=== PATIENT | female | born 1940 | race Caucasian/White ===

== ENCOUNTER 2017-05-01 19:41 | Inpatient (IN) | payer MEDICARE ==
[2017-05-01] MEDS ORDERED: Acetaminophen TAB* 325 MG PO ONE (20:38)
[2017-05-01] MEDS ORDERED: Aspirin TAB* 325 MG PO ONE (20:44)
[2017-05-01 20:51] LABS: ABS Basophils 0 10^3/ul (0-0.2); ABS Eosinophils 0 10^3/ul (0-0.6); ABS Lymphocytes 0.9 10^3/ul (1.0-4.8); ABS Monocytes 0.9 10^3/ul (0-0.8); ABS Neutrophils 11.1 10^3/ul (1.5-7.7); ABS Nucleated RBC 0 10^3/ul; Eosinophil % 0.1 % (0-6); Hematocrit 45 % (35-47); Hemoglobin 15.7 g/dl (12.0-16.0); Lymphocyte % 6.8 % (25-47); Mean Corpuscular HGB Conc 35 g/dl (31-36); Mean Corpuscular Hemoglobin 33 pg (27-31); Mean Corpuscular Volume 95 fL (80-97); Mean Platelet Volume 7 um3 (7.4-10.4); Nucleated Red Blood Cells % 0; Platelet Count 269 10^3/ul (150-450); Red Blood Count 4.73 10^6/ul (4.0-5.4); Red Cell Distribution Width 14 % (10.5-15); White Blood Count 12.9 10^3/ul (3.5-10.8)
--- NOTE | 2017-05-01 21:04 | RAD ---
INDICATION: Chest pain COMPARISON: None TECHNIQUE: An AP portable view obtained at 2047 hours is submitted. FINDINGS: Bones/Soft Tissues: There are no acute bony findings. Cardiomediastinal: The cardiomediastinal silhouette is normal. Lungs: There is a small left basilar infiltrate or atelectasis.. Pleura: Probable small left-sided effusion. Other: None IMPRESSION: SMALL LEFT BASILAR INFILTRATE OR ATELECTASIS WITH SUSPECTED LEFT-SIDED PLEURAL EFFUSION .
[2017-05-01 21:06] LABS: EGFR Non-African American 51.7 (>60); INR 0.92 (0.77-1.02)
[2017-05-01] MEDS ORDERED: Levofloxacin 500 MG IVPREMIX(* 500 MG/100 ML BAG IVPB ONE (21:17)
[2017-05-01] MEDS ORDERED: Potassium Chlor TAB* 20 MEQ TAB.ER PO ONE (21:18)
[2017-05-01] MEDS ORDERED: Albuterol 2.5 MG/3 ML NEB.SOL* (0.083%) INH PRN (22:27)
[2017-05-01] MEDS ORDERED: Ondansetron INJ* 2 MG/ML VIAL IV PRN (22:27)
[2017-05-01] MEDS ORDERED: NS 0.9% 1000 ML* 1,000 ML IV ONE (22:27)
[2017-05-01] MEDS ORDERED: NS 0.9% 1000 ML* 1,000 ML IV SCH (22:30)
--- NOTE | 2017-05-01 22:41 | ED ---
Zheng Carrillo Angela, scribed for Wil Lorenzana on 05/01/17 at 2035 . HPI Chest Pain - HPI Summary HPI Summary: This pt is a 77 y/o female presenting to [facility] c/o mid sternal chest pain since 14:00 today. Pt reports her chest pain began while she was at rest. Pt notes she was sitting down on a chair and then she laid down on a sofa. She states her chest pain has been constant. Pt reports mild SOB and pleuritic chest pain. She additionally notes fatigue and chills today. She denies nausea, vomiting, dizziness, fever, cough. Pt states she had a stress test 15 years ago but was unable to complete it, pt never followed up afterwards. She has also had an echocardiogram done, which resulted normal. Denies FHx of cardiac disease. - History of Current Complaint Chief Complaint: EDChestPainROMI Time Seen by Provider: 05/01/17 20:22 Hx Obtained From: Patient Onset/Duration: Started Hours Ago, Still Present Timing: Lasting Hours Current Severity: Mild Pain Intensity: 1 Pain Scale Used: 0-10 Numeric Chest Pain Location: Mid Sternal Chest Pain Radiates: No Aggravating Factor(s): Deep Breaths Alleviating Factor(s): Nothing Associated Signs and Symptoms: Positive: Chest Pain, Shortness of Breath, Chills , Other: - fatigue. Negative: Dizziness, Fever, Nausea, Cough, Vomiting - Allergy/Home Medications Allergies/Adverse Reactions: Allergies Allergy/AdvReac Type Severity Reaction Status Date / Time lisinopril Allergy Intermediate Coughing Verified 05/01/17 22:35 Penicillins Allergy Rash Verified 05/01/17 22:35 Sulfa (Sulfonamide Allergy Rash Verified 05/01/17 22:35 Antibiotics) NICKEL METAL Allergy Mild Rash Uncoded 02/07/16 09:14 Home Medications: Home Medications Multivitamins/Minerals TAB* [Theragran/minerals TAB*] 1 tab PO DAILY 05/01/17 [ History Confirmed 05/01/17] PMH/Surg Hx/FS Hx/Imm Hx Cardiovascular History: Reports: Hx Hypertension Musculoskeletal History: Denies: Hx Rheumatoid Arthritis, Hx Osteoporosis Sensory History: Reports: Hx Cataracts - PENDING SURGERY, Hx Contacts or Glasses , Hx Glaucoma - RIGHT EYE Denies: Hx Hearing Aid Opthamlomology History: Reports: Hx Cataracts - PENDING SURGERY, Hx Contacts or Glasses, Hx Glaucoma - RIGHT EYE - Cancer History Hx Chemotherapy: No Hx Radiation Therapy: No - Surgical History Surgery Procedure, Year, and Place: SEVERAL EYE SURGERIES TO LEFT EYE Hx Anesthesia Reactions: No Infectious Disease History: No Infectious Disease History: Denies: Traveled Outside the [place] in Last 30 Days - Family History Known Family History: Negative: Cardiac Disease - Social History Alcohol Use: Daily Alcohol Amount: GLASS OF WINE Substance Use Type: Reports: None Smoking Status (MU): Never Smoked Tobacco Review of Systems Positive: Chills, Fatigue. Negative: Fever Positive: Chest Pain Positive: Shortness Of Breath. Negative: Cough Negative: Vomiting, Nausea Neurological: Other - NEG: dizziness All Other Systems Reviewed And Are Negative: Yes Physical Exam - Summary Physical Exam Summary: Appearance: Well appearing, no pain distress Skin: warm, dry, reflects adequate perfusion Head/face: normal Eyes: EOMI, JOSÉ MIGUEL ENT: normal Neck: supple, nontender Respiratory: CTA, breath sounds present Cardiovascular: Tachycardia, pulses symmetrical Abdomen: nontender, soft Bowel: present Musculoskeletal: normal, strength/ROM intact Neuro: normal, sensory motor intact, A&Ox3 Triage Information Reviewed: Yes Vital Signs On Initial Exam: Initial Vitals Temp Pulse Resp BP Pulse Ox 98.4 F 122 20 132/79 92 05/01/17 19:44 05/01/17 19:44 05/01/17 19:44 05/01/17 19:44 05/01/17 19:44 Vital Signs Reviewed: Yes Diagnostics - Vital Signs Vital Signs Temp Pulse Resp BP Pulse Ox 05/01/17 19:44 98.4 F 122 20 132/79 92 - Laboratory Lab Results: Lab Results 05/01/17 05/01/17 05/01/17 Range/Units 20:24 20:24 20:24 WBC 12.9 H (3.5-10.8) 10^3/ul RBC 4.73 (4.0-5.4) 10^6/ul Hgb 15.7 (12.0-16.0) g/dl Hct 45 (35-47) % MCV 95 (80-97) fL MCH 33 H (27-31) pg MCHC 35 (31-36) g/dl RDW 14 (10.5-15) % Plt Count 269 (150-450) 10^3/ul MPV 7 L (7.4-10.4) um3 Neut % (Auto) 86.1 H (38-83) % Lymph % (Auto) 6.8 L (25-47) % Leon % (Auto) 6.8 (0-7) % Eos % (Auto) 0.1 (0-6) % Baso % (Auto) 0.2 (0-2) % Absolute Neuts (auto) 11.1 H (1.5-7.7) 10^3/ul Absolute Lymphs (auto) 0.9 L (1.0-4.8) 10^3/ul Absolute Monos (auto) 0.9 H (0-0.8) 10^3/ul Absolute Eos (auto) 0 (0-0.6) 10^3/ul Absolute Basos (auto) 0 (0-0.2) 10^3/ul Absolute Nucleated RBC 0 10^3/ul Nucleated RBC % 0 INR (Anticoag Therapy) 0.92 (0.77-1.02) APTT 30.3 (26.0-36.3) seconds Sodium (133-145) mmol/L Potassium (3.5-5.0) mmol/L Chloride (101-111) mmol/L Carbon Dioxide (22-32) mmol/L Anion Gap (2-11) mmol/L BUN (6-24) mg/dL Creatinine (0.51-0.95) mg/dL Est GFR ( Amer) (>60) Est GFR (Non-Af Amer) (>60) BUN/Creatinine Ratio (8-20) Glucose (70-100) mg/dL Lactic Acid (0.5-2.0) mmol/L Calcium (8.6-10.3) mg/dL Total Bilirubin (0.2-1.0) mg/dL AST (13-39) U/L ALT (7-52) U/L Alkaline Phosphatase (34-104) U/L Troponin I (<0.04) ng/mL B-Natriuretic Peptide 46 ( - 100) pg/mL Total Protein (6.4-8.9) g/dL Albumin (3.2-5.2) g/dL Globulin (2-4) g/dL Albumin/Globulin Ratio (1-3) Lipase (11.0-82.0) U/L Influenza A (Rapid) (Negative) Influenza B (Rapid) (Negative) 05/01/17 05/01/17 05/01/17 Range/Units 20:24 20:24 20:46 WBC (3.5-10.8) 10^3/ul RBC (4.0-5.4) 10^6/ul Hgb (12.0-16.0) g/dl Hct (35-47) % MCV (80-97) fL MCH (27-31) pg MCHC (31-36) g/dl RDW (10.5-15) % Plt Count (150-450) 10^3/ul MPV (7.4-10.4) um3 Neut % (Auto) (38-83) % Lymph % (Auto) (25-47) % Leon % (Auto) (0-7) % Eos % (Auto) (0-6) % Baso % (Auto) (0-2) % Absolute Neuts (auto) (1.5-7.7) 10^3/ul Absolute Lymphs (auto) (1.0-4.8) 10^3/ul Absolute Monos (auto) (0-0.8) 10^3/ul Absolute Eos (auto) (0-0.6) 10^3/ul Absolute Basos (auto) (0-0.2) 10^3/ul Absolute Nucleated RBC 10^3/ul Nucleated RBC % INR (Anticoag Therapy) (0.77-1.02) APTT (26.0-36.3) seconds Sodium 131 L (133-145) mmol/L Potassium 2.9 L (3.5-5.0) mmol/L Chloride 96 L (101-111) mmol/L Carbon Dioxide 24 (22-32) mmol/L Anion Gap 11 (2-11) mmol/L BUN 18 (6-24) mg/dL Creatinine 1.04 H (0.51-0.95) mg/dL Est GFR ( Amer) 66.4 (>60) Est GFR (Non-Af Amer) 51.7 (>60) BUN/Creatinine Ratio 17.3 (8-20) Glucose 129 H (70-100) mg/dL Lactic Acid 1.6 (0.5-2.0) mmol/L Calcium 9.3 (8.6-10.3) mg/dL Total Bilirubin 1.00 (0.2-1.0) mg/dL AST 16 (13-39) U/L ALT 16 (7-52) U/L Alkaline Phosphatase 70 (34-104) U/L Troponin I 0.01 (<0.04) ng/mL B-Natriuretic Peptide ( - 100) pg/mL Total Protein 7.4 (6.4-8.9) g/dL Albumin 4.2 (3.2-5.2) g/dL Globulin 3.2 (2-4) g/dL Albumin/Globulin Ratio 1.3 (1-3) Lipase 22 (11.0-82.0) U/L Influenza A (Rapid) Negative (Negative) Influenza B (Rapid) Negative (Negative) Result Diagrams: 05/01/17 20:24 05/01/17 20:24 Lab Statement: Any lab studies that have been ordered have been reviewed, and results considered in the medical decision making process. - Radiology Chest XR Xray Interpretation: Positive (See Comments) - IMPRESSION: Small left basilar infiltrate or atelectasis with suspected left-sided pleural effusion. Dr. Lorenzana has reviewed this radiology report. Radiology Interpretation Completed By: Radiologist - EKG 19:50 Cardiac Rate: Tachycardia EKG Rhythm: Sinus Tachycardia - at [address] Segment: Non-Specific - in inferior leads Re-Evaluation - Re-Evaluation First Eval Re-Evaluation Time: 21:28 Comment: I reviewed the lab and XR results with the pt. Chest Pain Course/Dx - Course Course Of Treatment: Pt is a 77 y/o female who presents with constant mid sternal chest pain since 14:00 today. She reports pleuritic chest pain and mild SOB. Blood work, EKG, and chest XR obtained. Chest XR shows pneumonia. In the ED course, the pt was given aspirin, acetaminophen, and levaquin. I discussed pt care with Dr. Villatoro, hospitalist, who has agreed to admit the pt. - Chest Pain Differential Diagnosis/HQI/PQRI: Acute DC, ACS, CHF, Lower Respiratory Infection - Diagnoses Provider Diagnoses: Pneumonia, Hypokalemia - Provider Notifications Discussed Care Of Patient With: Theo Villatoro Time Discussed With Above Provider: 21:30 Instructed by Provider To: Other - I discussed pt care with Dr. Villatoro, hospitalist, who has agreed to admit the pt. Discharge - Discharge Plan Condition: Stable Disposition: ADMITTED TO [facility] Referrals: Kimberley Clayton MD [Primary Care Provider] - The documentation as recorded by the Zheng felipe Angela accurately reflects the service I personally performed and the decisions made by , Wil Lorenzana.
[2017-05-01] MEDS ORDERED: cefTRIAXone(*) 1 GM ADVAN/BAG ONE (22:51)
[2017-05-01] MEDS: cefTRIAXone(*) 1 GM in NS 0.9% 50 ML* 50 ML IVPB SCH (22:53)
[2017-05-01] MEDS ORDERED: Iodixanol* (CONTRAST) 320 MG/ML 100 ML SDV IV ONE (23:21)
[2017-05-02] MEDS: Azithromycin IV(*) 500 MG in NS 0.9% 250 ML* 250 ML IVPB SCH ×2 (00:09→22:19)
[2017-05-02] MEDS: cefTRIAXone(*) 1 GM in NS 0.9% 50 ML* 50 ML IVPB SCH ×2 (01:20→22:00)
[2017-05-02 02:17] LABS: Urine Appearance Clear; Urine Blood 1+ (Negative); Urine Color Yellow; Urine Ketones Negative (Negative); Urine Protein Negative (Negative); Urine Specific Gravity 1.045 (1.010-1.030); Urine Urobilinogen Negative (Negative)
--- NOTE | 2017-05-02 04:19 | HP ---
CC: Dr. Clayton * HISTORY AND PHYSICAL: DATE OF ADMISSION: 05/01/17 PRIMARY CARE PROVIDER: Dr. Clayton. ATTENDING PHYSICIAN WHILE IN THE HOSPITAL: Dr. Theo Villatoro * (report dictated by Dion Thompson NP) CHIEF COMPLAINT: 1. Weakness. 2. Not feeling well. 3. Chest pain. HISTORY OF PRESENT ILLNESS: Ms. Johns is a 77-year-old female patient. She has a history of hypertension, glaucoma, hyperlipidemia, and arthritis. She comes into the ER today, says that yesterday she was feeling a little bit more tired and weak than her baseline. She said she noticed she was getting fatigued easily or she thought may be she did not sleep well the night before. She went to bed, she woke up this morning feeling rested; however, she noted in the day, she started having chest tightness, particularly in the afternoon after eating. She thought may be it was related to this; however, it remained constant, described as a sharp pain, worse with taking a deep breath. She noted any time that she took a deep breath, she was having pain, made things worse. It was nonexertional she said. She said she Google'd things on the internet to see what this could be and she was reassured that it was not exertional but she was concerned because it just was not going away. She was feeling fatigued and weak. She had chills this afternoon. She denies any recent rhinorrhea, sore throat, congestion, or cough. She was noticing that she was a little bit more winded and a little bit more tired. She was having dyspnea on exertion. There was no swelling or weight gain. No recent trips or travel or surgeries. She was concerned though because of the pain that was in the center of her chest. She wanted to make sure her heart was okay so she decided to come into the ED. She denies any nausea. She had 1 episode of diarrhea today, but no vomiting and no abdominal pain. She came into the ED, was evaluated. She denied any alleviating factors, but she did admit to taking a deep breath made it worse. She came in, was evaluated in the ED and it was noted that she appeared to have pneumonia with signs of early sepsis. We were asked to evaluate for admission. PAST MEDICAL HISTORY: Significant for: 1. Hypertension. 2. Glaucoma. 3. Hyperlipidemia. 4. Arthritis. PAST SURGICAL HISTORY: 1. The patient has had a cataract extraction. 2. Eye surgery. HOME MEDICATIONS: Include: 1. Timolol 1 drop right eye daily. 2. Multivitamin 1 tablet daily. 3. Losartan/hydrochlorothiazide 1 tablet p.o. daily. 4. Vitamin D 2000 units p.o. daily. ALLERGIES TO MEDICATIONS: Include LISINOPRIL, PENICILLIN, SULFA, and NICKEL. FAMILY HISTORY: Mother had a history of bladder cancer. Father had a history of bladder cancer as well. SOCIAL HISTORY: She does not smoke. She does drink wine 1 glass daily with dinner. Surrogate decision maker is her . REVIEW OF SYSTEMS: There is no documented fever. She does admit to having chills. She denies having any double vision. There is no ear discharge. She denies having any rhinorrhea or sore throat. There has been no cough. There has been dyspnea on exertion. There has been fatigue. There has been no abdominal pain. There has been no nausea, no vomiting, and no dysuria. There has been no frequency. No seizure, no loss of consciousness, no pruritus, and no skin ulcerations. Review of 14 systems completed, all others negative. PHYSICAL EXAMINATION GENERAL: At this time, Ms. Johns is a 77-year-old female patient. She is sitting in the ED stretcher. She does not appear to be in any acute distress. VITAL SIGNS: Blood pressure 117/73, pulse 101, respirations 24, O2 sat 91% on room air, and temperature 98.4. HEENT: Head atraumatic. Eyes: Sclerae are anicteric and not pale. Throat: Oral mucosa appears to be dry. No oropharyngeal erythema. NECK: Supple. LUNGS: She had diminished breath sounds in the left base, equal diaphragmatic expansion. HEART: Sounds S1, S2. She is tachycardic. No murmurs, rubs, or gallops. ABDOMEN: Soft, flat, nontender. Bowel sounds present. EXTREMITIES: Pulses 2+ throughout. No peripheral edema. She is moving all 4 extremities with 5/5 strength. NEUROLOGIC: The patient is awake, alert, oriented x3. Tongue midline. Gauge Checker were equal. No gross focal deficits. SKIN: Intact. LABORATORY DATA: WBC of 12.9, RBC of 4.73, hemoglobin 15.7, hematocrit 45, platelet count 269, INR of 0.92, PTT of 30.3. Sodium 131, potassium of 3.9, chloride of 96, carbon dioxide 24, bicarb 24, BUN 18, creatinine 1.04, glucose 129, lactic 1.6, calcium 9.3, total bili 1.0, AST 16, ALT 16, alk phos 70. Troponin 0. BNP of 46. Lipase 22. Serology negative for flu. She did have a chest x-ray obtained today, impression: Small left basilar infiltrate or atelectasis with suspected left-sided pleural effusion. She did have an EKG obtained today, which showed a sinus tachycardia, rate of 109. She did have elevated elevation in lead II only. No elevation in III or aVF. No ST depressions or T-wave inversions. Old medical records were reviewed. ASSESSMENT AND PLAN: Ms. Johns is a 77-year-old female patient coming into the ED today with complaints of weakness and not feeling well and also chest discomfort, worse with taking a deep breath, constant in nature, on evaluation found to have what appeared to be pneumonia and early signs of systemic inflammatory response syndrome and sepsis. She will be admitted under observation status for: 1. Pneumonia, again with early signs of sepsis. At this point, we will get blood cultures. We will go ahead and give her a liter of fluid wide open, then normal saline at 100 an hour for a liter. We will go ahead and give her Rocephin, azithromycin, get legionella antigen, strep pneumo antigen, and sputum cultures. P.r.n. albuterol has been ordered and I suspect this is the culprit of her chest pain; however, I do get concerned that her O2 sats are low at 90, she is a little tachycardic, she is still over a 100. I would like to get a CT of the chest just to be sure we are not missing any underlying etiology such as pulmonary embolism in the patient. I will check another troponin and will continue to treat her again with the fluids and antibiotics. Get the CTA. Continue to follow. 2. Hypertension. In the setting of this acute illness, I am going to hold her losartan and hydrochlorothiazide. 3. Hypokalemia. This has been replaced in the ED, we will check in the morning and we will also hold the hydrochlorothiazide. 4. Hyponatremia, it is mild probably secondary to the hydrochlorothiazide. We will repeat labs in the morning. 5. Hyperlipidemia. Follow with primary. 6. Osteoarthritis. Follow with primary. 7. DVT prophylaxis. Heparin subcu has been ordered. 8. Code status, full code. 9. Fluids, electrolytes, and nutrition. She can have a regular diet. TIME SPENT: Time spent on admission 60 minutes, greater than half the time spent [id number] with the patient obtaining my history and physical, the other half time was spent going over the plan of care with the patient and implementing the plan of care. I discussed the plan of care with my attending, Dr. Villatoro, who is in agreement. DION THOMPSON, TONA [id number]/CPS #: [id number] [email or web address]
[2017-05-02] MEDS ORDERED: NS 0.9% 1000 ML* 1,000 ML IV SCH (04:45)
[2017-05-02 05:37] LABS: Hematocrit 38 % (35-47); Hemoglobin 13.1 g/dl (12.0-16.0); Mean Corpuscular HGB Conc 35 g/dl (31-36); Mean Corpuscular Hemoglobin 33 pg (27-31); Mean Corpuscular Volume 95 fL (80-97); Mean Platelet Volume 7 um3 (7.4-10.4); Platelet Count 222 10^3/ul (150-450); Red Blood Count 3.95 10^6/ul (4.0-5.4); Red Cell Distribution Width 14 % (10.5-15); White Blood Count 11.6 10^3/ul (3.5-10.8)
[2017-05-02 05:40] LABS: ABS Basophils 0 10^3/ul (0-0.2); ABS Eosinophils 0 10^3/ul (0-0.6); ABS Lymphocytes 1.3 10^3/ul (1.0-4.8); ABS Monocytes 1.6 10^3/ul (0-0.8); ABS Neutrophils 8.5 10^3/ul (1.5-7.7); ABS Nucleated RBC 0 10^3/ul; Eosinophil % 0.2 % (0-6); Lymphocyte % 11.3 % (25-47); Nucleated Red Blood Cells % 0
[2017-05-02 05:42] LABS: INR 1.07 (0.77-1.02)
[2017-05-02 05:53] LABS: EGFR Non-African American 59.5 (>60)
[2017-05-02] MEDS: Heparin VIAL(*) 5000 UNITS/ML VIAL (FIVE THOUSAND) SUBCUT SCH ×3 (05:59→20:54)
[2017-05-02] MEDS ORDERED: NS 0.9% 1000 ML* 1,000 ML IV ONE (07:35)
--- NOTE | 2017-05-02 07:57 | RAD ---
INDICATION: Chest pain and tachycardia COMPARISON: None TECHNIQUE: Axial source images were acquired following the administration of 84 mL Visipaque [address] angiographic technique. Coronal and sagittal reconstructed images were constructed and reviewed. FINDINGS: There there are no filling defects in the pulmonary arteries to indicate acute pulmonary embolic disease. At the dependent bilateral lung bases, more severe in the left than the right, there is pleural-based linear density. The left lung base there is more rounded density in the dependent-most lung with air bronchograms. There is no suspicious focal nodules or lobar consolidation. The heart is normal in size. There is no evidence of pericardial effusion. There is no evidence of aortic aneurysm or dissection. There is no mediastinal, hilar, or axillary lymphadenopathy. There are mild degenerative changes of the thoracic spine including loss of intervertebral disc height. Limited views of the upper abdomen show no abnormalities. IMPRESSION: 1. No CT of evidence of pulmonary embolism. 2. Pleural-based linear and rounded density at the left worse than right lung bases could be atelectasis or possibly pneumonia.
[2017-05-02] MEDS: Timolol 0.5% OPTH.SOL* BTL RIGHT EYE SCH (08:45)
[2017-05-02] MEDS ORDERED: Potassium Chlor TAB* 20 MEQ TAB.ER PO ONE (12:32)
[2017-05-02] MEDS ORDERED: KCL 10 MEQ/50 ML IVPREMIX* 10 MEQ/50 ML BAG IV SCH (13:00)
--- NOTE | 2017-05-02 15:13 | PN ---
Subjective Date of Service: 05/02/17 Interval History: Patient seen and examined. Sitting up in bed, states she is feeling better. No SOB today, less malaise. Denies chest pain, no dyspnea, no n/v. Tolerating PO. Had asymptomatic hypotension today, but SBP >100 now. Objective Active Medications: Acetaminophen (Tylenol Tab*) 650 mg PO Q6H PRN PRN Reason: FEVER/PAIN Albuterol (Ventolin 2.5 Mg/3 Ml Neb.[place]*) 2.5 mg INH Q2H PRN PRN Reason: SOB/WHEEZING Heparin Sodium (Porcine) (Heparin Vial(*)) 5,000 units SUBCUT Q8HR [facility] Last Admin: 05/02/17 13:08 Dose: 5,000 units Ceftriaxone Sodium 1 gm/ (Sodium Chloride) 50 mls @ 200 mls/hr IVPB Q24H [facility] Last Admin: 05/02/17 01:20 Dose: Not Given Azithromycin 500 mg/ Sodium (Chloride) 250 mls @ 250 mls/hr IVPB Q24H [facility] Last Admin: 05/02/17 00:09 Dose: 250 mls/hr Ondansetron HCl (Zofran Inj*) 4 mg IV Q6H PRN PRN Reason: NAUSEA Timolol Maleate (Timoptic 0.5% Opth*) 1 drop RIGHT EYE DAILY [facility] Last Admin: 05/02/17 08:45 Dose: 1 drop Oxygen Devices in Use Now: None Appearance: Alert, NAD Ears/Nose/Mouth/Throat: NL Teeth, Lips, Gums, Mucous Membranes Moist Neck: NL Appearance and Movements; NL JVP, Trachea Midline Respiratory: Symmetrical Chest Expansion and Respiratory Effort - expiratory wheeze, diminished bases, some course sounds scattered Cardiovascular: NL Sounds; No Murmurs; No JVD, RRR Abdominal: NL Sounds; No Tenderness; No Distention Extremities: No Edema, No Clubbing, Cyanosis Skin: No Rash or Ulcers Neurological: Alert and Oriented x 3, NL Sensation, NL Gait Nutrition: Taking PO's Result Diagrams: 05/02/17 05:15 05/02/17 05:15 Additional Lab and Data: Lab Results 05/01/17 05/01/17 05/01/17 Range/Units 20:24 20:24 20:24 WBC 12.9 H (3.5-10.8) 10^3/ul RBC 4.73 (4.0-5.4) 10^6/ul Hgb 15.7 (12.0-16.0) g/dl Hct 45 (35-47) % MCV 95 (80-97) fL MCH 33 H (27-31) pg MCHC 35 (31-36) g/dl RDW 14 (10.5-15) % Plt Count 269 (150-450) 10^3/ul MPV 7 L (7.4-10.4) um3 Neut % (Auto) 86.1 H (38-83) % Lymph % (Auto) 6.8 L (25-47) % Harnett % (Auto) 6.8 (0-7) % Eos % (Auto) 0.1 (0-6) % Baso % (Auto) 0.2 (0-2) % Absolute Neuts (auto) 11.1 H (1.5-7.7) 10^3/ul Absolute Lymphs (auto) 0.9 L (1.0-4.8) 10^3/ul Absolute Monos (auto) 0.9 H (0-0.8) 10^3/ul Absolute Eos (auto) 0 (0-0.6) 10^3/ul Absolute Basos (auto) 0 (0-0.2) 10^3/ul Absolute Nucleated RBC 0 10^3/ul Nucleated RBC % 0 INR (Anticoag Therapy) 0.92 (0.77-1.02) APTT 30.3 (26.0-36.3) seconds Sodium (133-145) mmol/L Potassium (3.5-5.0) mmol/L Chloride (101-111) mmol/L Carbon Dioxide (22-32) mmol/L Anion Gap (2-11) mmol/L BUN (6-24) mg/dL Creatinine (0.51-0.95) mg/dL Est GFR ( Amer) (>60) Est GFR (Non-Af Amer) (>60) BUN/Creatinine Ratio (8-20) Glucose (70-100) mg/dL Lactic Acid (0.5-2.0) mmol/L Calcium (8.6-10.3) mg/dL Total Bilirubin (0.2-1.0) mg/dL AST (13-39) U/L ALT (7-52) U/L Alkaline Phosphatase (34-104) U/L Troponin I (<0.04) ng/mL B-Natriuretic Peptide 46 ( - 100) pg/mL Total Protein (6.4-8.9) g/dL Albumin (3.2-5.2) g/dL Globulin (2-4) g/dL Albumin/Globulin Ratio (1-3) Lipase (11.0-82.0) U/L Influenza A (Rapid) (Negative) Influenza B (Rapid) (Negative) 05/01/17 05/01/17 05/01/17 Range/Units 20:24 20:24 20:46 WBC (3.5-10.8) 10^3/ul RBC (4.0-5.4) 10^6/ul Hgb (12.0-16.0) g/dl Hct (35-47) % MCV (80-97) fL MCH (27-31) pg MCHC (31-36) g/dl RDW (10.5-15) % Plt Count (150-450) 10^3/ul MPV (7.4-10.4) um3 Neut % (Auto) (38-83) % Lymph % (Auto) (25-47) % Harnett % (Auto) (0-7) % Eos % (Auto) (0-6) % Baso % (Auto) (0-2) % Absolute Neuts (auto) (1.5-7.7) 10^3/ul Absolute Lymphs (auto) (1.0-4.8) 10^3/ul Absolute Monos (auto) (0-0.8) 10^3/ul Absolute Eos (auto) (0-0.6) 10^3/ul Absolute Basos (auto) (0-0.2) 10^3/ul Absolute Nucleated RBC 10^3/ul Nucleated RBC % INR (Anticoag Therapy) (0.77-1.02) APTT (26.0-36.3) seconds Sodium 131 L (133-145) mmol/L Potassium 2.9 L (3.5-5.0) mmol/L Chloride 96 L (101-111) mmol/L Carbon Dioxide 24 (22-32) mmol/L Anion Gap 11 (2-11) mmol/L BUN 18 (6-24) mg/dL Creatinine 1.04 H (0.51-0.95) mg/dL Est GFR ( Amer) 66.4 (>60) Est GFR (Non-Af Amer) 51.7 (>60) BUN/Creatinine Ratio 17.3 (8-20) Glucose 129 H (70-100) mg/dL Lactic Acid 1.6 (0.5-2.0) mmol/L Calcium 9.3 (8.6-10.3) mg/dL Total Bilirubin 1.00 (0.2-1.0) mg/dL AST 16 (13-39) U/L ALT 16 (7-52) U/L Alkaline Phosphatase 70 (34-104) U/L Troponin I 0.01 (<0.04) ng/mL B-Natriuretic Peptide ( - 100) pg/mL Total Protein 7.4 (6.4-8.9) g/dL Albumin 4.2 (3.2-5.2) g/dL Globulin 3.2 (2-4) g/dL Albumin/Globulin Ratio 1.3 (1-3) Lipase 22 (11.0-82.0) U/L Influenza A (Rapid) Negative (Negative) Influenza B (Rapid) Negative (Negative) Diagnostic Imaging: Patient Name: CONNER DUTTON Medical Record#: [id number] Ordering Physician: Dion Thompson [employer]CTIONAL TESTER Acct.#: [id number] : 1940 Age: 77 Sex: F Location: [address] [place] [address]/TELEMET[employer] Exam Date: 05/01/172226 ADM Status: ADM Fernandez Order Information: CTA CHEST Accession Number: [id number] CPT: 88718 INDICATION: Chest pain and tachycardia COMPARISON: None TECHNIQUE: Axial source images were acquired following the administration of 84 mL Visipaque [address] angiographic technique. Coronal and sagittal reconstructed images were constructed and reviewed. FINDINGS: There there are no filling defects in the pulmonary arteries to indicate acute pulmonary embolic disease. At the dependent bilateral lung bases, more severe in the left than the right, there is pleural-based linear density. The left lung base there is more rounded density in the dependent-most lung with air bronchograms. There is no suspicious focal nodules or lobar consolidation. The heart is normal in size. There is no evidence of pericardial effusion. There is no evidence of aortic aneurysm or dissection. There is no mediastinal, hilar, or axillary lymphadenopathy. There are mild degenerative changes of the thoracic spine including loss of intervertebral disc height. Limited views of the upper abdomen show no abnormalities. IMPRESSION: 1. No CT of evidence of pulmonary embolism. 2. Pleural-based linear and rounded density at the left worse than right lung bases could be atelectasis or possibly pneumonia. <Electronically signed by Mustapha Hernandez MD in [facility]> 05/02/17 0754 Dictated By: Mustapha Hernandez MD Dictated Date/Time: 05/02/17753 Transcribed Date/Time: 05/02/17 0745 Copy to: Assess/Plan/Problems-Billing Assessment: - Patient Problems (1) Pneumonia Code(s): J18.9 - PNEUMONIA, UNSPECIFIED ORGANISM SNOMED Code(s): 226644355 Comment: - SOB improved - Continue azythromycin and rocephin - Afebrile - CT chest negative for PE or aneurysm (2) Hypotension Comment: - Resolved after fluid boluses (3) Electrolyte and fluid disorder Code(s): E87.8 - OTH DISORDERS OF ELECTROLYTE AND FLUID BALANCE, NEC SNOMED Code(s): 37900474 Comment: - Replete and monitor, hold HCTZ (4) DVT prophylaxis Code(s): KEA6884 - SNOMED Code(s): 879584129 Comment: - HSQ (5) Full code status Code(s): Z78.9 - OTHER SPECIFIED HEALTH STATUS SNOMED Code(s): 509718196 Status and Disposition: remain inpatient Counseling and/or Coordination of Care Minutes: coordinated with staff
[2017-05-03] MEDS: Acetaminophen TAB* 325 MG PO PRN ×2 (00:43→19:53)
[2017-05-03 05:09] LABS: EGFR Non-African American 69.9 (>60)
[2017-05-03] MEDS: Heparin VIAL(*) 5000 UNITS/ML VIAL (FIVE THOUSAND) SUBCUT SCH ×3 (05:24→22:38)
[2017-05-03] MEDS: Timolol 0.5% OPTH.SOL* BTL RIGHT EYE SCH (10:06)
[2017-05-03] MEDS ORDERED: Potassium Chlor TAB* 20 MEQ TAB.ER PO ONE (10:59)
--- NOTE | 2017-05-03 15:36 | PN ---
Subjective Date of Service: 05/03/17 Interval History: Patient seen and examined. States she had fever overnight and emesis x1 after dinner and then drop in pulse ox. Overall malaise, but no SOB, no chest pain. States O2 helping with fatigue. Objective Active Medications: Acetaminophen (Tylenol Tab*) 650 mg PO Q6H PRN PRN Reason: FEVER/PAIN Last Admin: 05/03/17 00:43 Dose: 650 mg Albuterol (Ventolin 2.5 Mg/3 Ml Neb.[place]*) 2.5 mg INH Q2H PRN PRN Reason: SOB/WHEEZING Heparin Sodium (Porcine) (Heparin Vial(*)) 5,000 units SUBCUT Q8HR [facility] Last Admin: 05/03/17 15:08 Dose: 5,000 units Ceftriaxone Sodium 1 gm/ (Sodium Chloride) 50 mls @ 200 mls/hr IVPB Q24H [facility] Last Admin: 05/02/17 22:00 Dose: 200 mls/hr Azithromycin 500 mg/ Sodium (Chloride) 250 mls @ 250 mls/hr IVPB Q24H [facility] Last Admin: 05/02/17 22:19 Dose: 250 mls/hr Ondansetron HCl (Zofran Inj*) 4 mg IV Q6H PRN PRN Reason: NAUSEA Timolol Maleate (Timoptic 0.5% Opth*) 1 drop RIGHT EYE DAILY [facility] Last Admin: 05/03/17 10:06 Dose: 1 drop Vital Signs - 8 hr 05/03/17 05/03/17 08:00 11:01 Temperature 98.8 F Pulse Rate 83 Respiratory 18 20 Rate Blood Pressure 118/74 (mmHg) O2 Sat by Pulse 96 Oximetry Oxygen Devices in Use Now: Nasal Cannula Appearance: Alert, tired, NAD Ears/Nose/Mouth/Throat: NL Teeth, Lips, Gums, Clear Oropharnyx Neck: Trachea Midline Respiratory: Symmetrical Chest Expansion and Respiratory Effort - expiratory wheeze with rhonchi right base Cardiovascular: NL Sounds; No Murmurs; No JVD, RRR Extremities: No Edema, No Clubbing, Cyanosis Neurological: Alert and Oriented x 3, NL Sensation, NL Gait Nutrition: Taking PO's Result Diagrams: 05/02/17 05:15 05/03/17 04:40 Additional Lab and Data: Lab Results 05/01/17 05/01/17 05/01/17 Range/Units 20:24 20:24 20:24 WBC 12.9 H (3.5-10.8) 10^3/ul RBC 4.73 (4.0-5.4) 10^6/ul Hgb 15.7 (12.0-16.0) g/dl Hct 45 (35-47) % MCV 95 (80-97) fL MCH 33 H (27-31) pg MCHC 35 (31-36) g/dl RDW 14 (10.5-15) % Plt Count 269 (150-450) 10^3/ul MPV 7 L (7.4-10.4) um3 Neut % (Auto) 86.1 H (38-83) % Lymph % (Auto) 6.8 L (25-47) % Wilcox % (Auto) 6.8 (0-7) % Eos % (Auto) 0.1 (0-6) % Baso % (Auto) 0.2 (0-2) % Absolute Neuts (auto) 11.1 H (1.5-7.7) 10^3/ul Absolute Lymphs (auto) 0.9 L (1.0-4.8) 10^3/ul Absolute Monos (auto) 0.9 H (0-0.8) 10^3/ul Absolute Eos (auto) 0 (0-0.6) 10^3/ul Absolute Basos (auto) 0 (0-0.2) 10^3/ul Absolute Nucleated RBC 0 10^3/ul Nucleated RBC % 0 INR (Anticoag Therapy) 0.92 (0.77-1.02) APTT 30.3 (26.0-36.3) seconds Sodium (133-145) mmol/L Potassium (3.5-5.0) mmol/L Chloride (101-111) mmol/L Carbon Dioxide (22-32) mmol/L Anion Gap (2-11) mmol/L BUN (6-24) mg/dL Creatinine (0.51-0.95) mg/dL Est GFR ( Amer) (>60) Est GFR (Non-Af Amer) (>60) BUN/Creatinine Ratio (8-20) Glucose (70-100) mg/dL Lactic Acid (0.5-2.0) mmol/L Calcium (8.6-10.3) mg/dL Total Bilirubin (0.2-1.0) mg/dL AST (13-39) U/L ALT (7-52) U/L Alkaline Phosphatase (34-104) U/L Troponin I (<0.04) ng/mL B-Natriuretic Peptide 46 ( - 100) pg/mL Total Protein (6.4-8.9) g/dL Albumin (3.2-5.2) g/dL Globulin (2-4) g/dL Albumin/Globulin Ratio (1-3) Lipase (11.0-82.0) U/L Influenza A (Rapid) (Negative) Influenza B (Rapid) (Negative) 05/01/17 05/01/17 05/01/17 Range/Units 20:24 20:24 20:46 WBC (3.5-10.8) 10^3/ul RBC (4.0-5.4) 10^6/ul Hgb (12.0-16.0) g/dl Hct (35-47) % MCV (80-97) fL MCH (27-31) pg MCHC (31-36) g/dl RDW (10.5-15) % Plt Count (150-450) 10^3/ul MPV (7.4-10.4) um3 Neut % (Auto) (38-83) % Lymph % (Auto) (25-47) % Wilcox % (Auto) (0-7) % Eos % (Auto) (0-6) % Baso % (Auto) (0-2) % Absolute Neuts (auto) (1.5-7.7) 10^3/ul Absolute Lymphs (auto) (1.0-4.8) 10^3/ul Absolute Monos (auto) (0-0.8) 10^3/ul Absolute Eos (auto) (0-0.6) 10^3/ul Absolute Basos (auto) (0-0.2) 10^3/ul Absolute Nucleated RBC 10^3/ul Nucleated RBC % INR (Anticoag Therapy) (0.77-1.02) APTT (26.0-36.3) seconds Sodium 131 L (133-145) mmol/L Potassium 2.9 L (3.5-5.0) mmol/L Chloride 96 L (101-111) mmol/L Carbon Dioxide 24 (22-32) mmol/L Anion Gap 11 (2-11) mmol/L BUN 18 (6-24) mg/dL Creatinine 1.04 H (0.51-0.95) mg/dL Est GFR ( Amer) 66.4 (>60) Est GFR (Non-Af Amer) 51.7 (>60) BUN/Creatinine Ratio 17.3 (8-20) Glucose 129 H (70-100) mg/dL Lactic Acid 1.6 (0.5-2.0) mmol/L Calcium 9.3 (8.6-10.3) mg/dL Total Bilirubin 1.00 (0.2-1.0) mg/dL AST 16 (13-39) U/L ALT 16 (7-52) U/L Alkaline Phosphatase 70 (34-104) U/L Troponin I 0.01 (<0.04) ng/mL B-Natriuretic Peptide ( - 100) pg/mL Total Protein 7.4 (6.4-8.9) g/dL Albumin 4.2 (3.2-5.2) g/dL Globulin 3.2 (2-4) g/dL Albumin/Globulin Ratio 1.3 (1-3) Lipase 22 (11.0-82.0) U/L Influenza A (Rapid) Negative (Negative) Influenza B (Rapid) Negative (Negative) Diagnostic Imaging: Patient Name: CONNER DUTTON Medical Record#: [id number] Ordering Physician: Dion Thompson BRICK KILN BURNER Acct.#: [id number] : 1940 Age: 77 Sex: F Location: [address] [place] [address]LEMET[place] Exam Date: 05/01/172226 ADM Status: ADM Fernandez Order Information: CTA CHEST Accession Number: [id number] CPT: 56601 INDICATION: Chest pain and tachycardia COMPARISON: None TECHNIQUE: Axial source images were acquired following the administration of 84 mL Visipaque [address] angiographic technique. Coronal and sagittal reconstructed images were constructed and reviewed. FINDINGS: There there are no filling defects in the pulmonary arteries to indicate acute pulmonary embolic disease. At the dependent bilateral lung bases, more severe in the left than the right, there is pleural-based linear density. The left lung base there is more rounded density in the dependent-most lung with air bronchograms. There is no suspicious focal nodules or lobar consolidation. The heart is normal in size. There is no evidence of pericardial effusion. There is no evidence of aortic aneurysm or dissection. There is no mediastinal, hilar, or axillary lymphadenopathy. There are mild degenerative changes of the thoracic spine including loss of intervertebral disc height. Limited views of the upper abdomen show no abnormalities. IMPRESSION: 1. No CT of evidence of pulmonary embolism. 2. Pleural-based linear and rounded density at the left worse than right lung bases could be atelectasis or possibly pneumonia. <Electronically signed by Mustapha Hernandez MD in [facility]> 05/02/17 0754 Dictated By: Mustapha Hernandez MD Dictated Date/Time: 05/02/17 0754 Transcribed Date/Time: 05/02/17 0745 Copy to: Assess/Plan/Problems-Billing Assessment: This is a 77 year old female patient presenting to ER with c/o SOB, being treated for PNA. - Patient Problems (1) Pneumonia Code(s): J18.9 - PNEUMONIA, UNSPECIFIED ORGANISM SNOMED Code(s): 249063641 Comment: - SOB improved, but desat last night - continue O2 NC for low pulse ox and continue to monitor - Continue azythromycin and rocephin - Add mucinex and flutter valve, albuterol PRN - Monitor fevers and follow cultures - CT chest negative for PE or aneurysm (2) Hypotension Comment: - Resolved after fluid boluses (3) Electrolyte and fluid disorder Code(s): E87.8 - OTH DISORDERS OF ELECTROLYTE AND FLUID BALANCE, NEC SNOMED Code(s): 81441327 Comment: - Replete and monitor, hold HCTZ - Additional 40 mEq potassium today (4) DVT prophylaxis Code(s): WIU5633 - SNOMED Code(s): 765599693 Comment: - HSQ (5) Full code status Code(s): Z78.9 - OTHER SPECIFIED HEALTH STATUS SNOMED Code(s): 256934764 Status and Disposition: remain inpatient and re-eval status in AM Counseling and/or Coordination of Care Minutes: coordinated with patient and staff
[2017-05-03] MEDS: guaiFENesin ER TAB 600 MG PO SCH (19:54)
[2017-05-03] MEDS: cefTRIAXone(*) 1 GM in NS 0.9% 50 ML* 50 ML IVPB SCH (22:34)
[2017-05-03] MEDS: Azithromycin IV(*) 500 MG in NS 0.9% 250 ML* 250 ML IVPB SCH (22:51)
[2017-05-04 05:48] LABS: ABS Basophils 0 10^3/ul (0-0.2); ABS Eosinophils 0.2 10^3/ul (0-0.6); ABS Lymphocytes 1.5 10^3/ul (1.0-4.8); ABS Monocytes 0.9 10^3/ul (0-0.8); ABS Neutrophils 4.7 10^3/ul (1.5-7.7); ABS Nucleated RBC 0 10^3/ul; Eosinophil % 2.5 % (0-6); Hematocrit 35 % (35-47); Hemoglobin 12.4 g/dl (12.0-16.0); Lymphocyte % 19.9 % (25-47); Mean Corpuscular HGB Conc 35 g/dl (31-36); Mean Corpuscular Hemoglobin 34 pg (27-31); Mean Corpuscular Volume 95 fL (80-97); Mean Platelet Volume 7 um3 (7.4-10.4); Nucleated Red Blood Cells % 0; Platelet Count 201 10^3/ul (150-450); Red Blood Count 3.71 10^6/ul (4.0-5.4); Red Cell Distribution Width 13 % (10.5-15); White Blood Count 7.3 10^3/ul (3.5-10.8)
[2017-05-04] MEDS: Heparin VIAL(*) 5000 UNITS/ML VIAL (FIVE THOUSAND) SUBCUT SCH ×3 (06:00→20:10)
--- NOTE | 2017-05-04 09:18 | PN ---
Subjective Date of Service: 05/04/17 Interval History: . Interviewed and examined patient at bedside; Reviewed previous notes and radiology results; patient feeling better had hard night last night, with hypoxic episodes, but ambulating today and improved wishes to spend one more night to ensure clinical stability. . Family History: Unchanged from Admission Social History: Unchanged from Admission Past Medical History: Unchanged from Admission Objective Active Medications: . Acetaminophen (Tylenol Tab*) 650 mg PO Q6H PRN PRN Reason: FEVER/PAIN Last Admin: 05/03/17 19:53 Dose: 650 mg Albuterol (Ventolin 2.5 Mg/3 Ml Neb.[place]*) 2.5 mg INH Q2H PRN PRN Reason: SOB/WHEEZING Guaifenesin (Mucinex*) 600 mg PO BID [facility] Last Admin: 05/03/17 19:54 Dose: 600 mg Heparin Sodium (Porcine) (Heparin Vial(*)) 5,000 units SUBCUT Q8HR [facility] Last Admin: 05/04/17 06:00 Dose: 5,000 units Ceftriaxone Sodium 1 gm/ (Sodium Chloride) 50 mls @ 200 mls/hr IVPB Q24H [facility] Last Admin: 05/03/17 22:34 Dose: 200 mls/hr Azithromycin 500 mg/ Sodium (Chloride) 250 mls @ 250 mls/hr IVPB Q24H [facility] Last Admin: 05/03/17 22:51 Dose: 250 mls/hr Ondansetron HCl (Zofran Inj*) 4 mg IV Q6H PRN PRN Reason: NAUSEA Timolol Maleate (Timoptic 0.5% Opth*) 1 drop RIGHT EYE DAILY [facility] Last Admin: 05/03/17 10:06 Dose: 1 drop . Vital Signs - 8 hr 05/04/17 05/04/17 05/04/17 01:21 03:21 07:25 Temperature 99.9 F 98.3 F Pulse Rate 81 85 Respiratory 20 24 Rate Blood Pressure 122/75 128/77 (mmHg) O2 Sat by Pulse 91 91 92 Oximetry 05/04/17 07:44 Temperature Pulse Rate Respiratory 24 Rate Blood Pressure (mmHg) O2 Sat by Pulse Oximetry Oxygen Devices in Use Now: Nasal Cannula Appearance: NAD Eyes: No Scleral Icterus Ears/Nose/Mouth/Throat: Clear Oropharnyx Neck: NL Appearance and Movements; NL JVP Respiratory: Symmetrical Chest Expansion and Respiratory Effort, Clear to Auscultation Cardiovascular: NL Sounds; No Murmurs; No JVD Abdominal: NL Sounds; No Tenderness; No Distention Lymphatic: No Cervical Adenopathy Extremities: No Edema Skin: No Rash or Ulcers Neurological: Alert and Oriented x 3 Lines/Tubes/Other Access: Clean, Dry and Intact Peripheral IV Nutrition: Taking PO's Result Diagrams: 05/04/17 05:10 05/03/17 04:40 Additional Lab and Data: . Diagnostic Imaging: Patient Name: CONNER DUTTON Medical Record#: [id number] Ordering Physician: Dion Thompson [employer]INGER[employer] TECHNICIAN Acct.#: [id number] : 1940 Age: 77 Sex: F Location: [address] [place] [address]/[place]MET[place] Exam Date: 05/01/172226 ADM Status: ADM Fernandez Order Information: CTA CHEST Accession Number: [id number] CPT: 62717 INDICATION: Chest pain and tachycardia COMPARISON: None TECHNIQUE: Axial source images were acquired following the administration of 84 mL Visipaque [address] angiographic technique. Coronal and sagittal reconstructed images were constructed and reviewed. FINDINGS: There there are no filling defects in the pulmonary arteries to indicate acute pulmonary embolic disease. At the dependent bilateral lung bases, more severe in the left than the right, there is pleural-based linear density. The left lung base there is more rounded density in the dependent-most lung with air bronchograms. There is no suspicious focal nodules or lobar consolidation. The heart is normal in size. There is no evidence of pericardial effusion. There is no evidence of aortic aneurysm or dissection. There is no mediastinal, hilar, or axillary lymphadenopathy. There are mild degenerative changes of the thoracic spine including loss of intervertebral disc height. Limited views of the upper abdomen show no abnormalities. IMPRESSION: 1. No CT of evidence of pulmonary embolism. 2. Pleural-based linear and rounded density at the left worse than right lung bases could be atelectasis or possibly pneumonia. <Electronically signed by Mustapha Hernandez MD in [facility]> 05/02/17 0754 Dictated By: Mustapha Hernandez MD Dictated Date/Time: 05/02/17 0754 Transcribed Date/Time: 05/02/17 0745 Copy to: Assess/Plan/Problems-Billing Assessment: This is a 77 year old female patient presenting to ER with c/o SOB, admitted for left Lower Lobar Pneumonia. - Patient Problems (1) Pneumonia Current Visit: Yes Status: Acute Priority: High Code(s): J18.9 - PNEUMONIA , UNSPECIFIED ORGANISM Comment: - SOB and desaturations continue - continue O2 NC for low pulse ox and continue to monitor - Continue azythromycin and rocephin (ceftriaxone) - Add mucinex and flutter valve, albuterol PRN - Monitor fevers and follow cultures - CT chest negative for PE or aneurysm (2) Hypotension Current Visit: Yes Status: Resolved Priority: Medium Comment: - Resolved after fluid boluses (3) Full code status Current Visit: Yes Status: Acute Priority: High Code(s): Z78.9 - OTHER SPECIFIED HEALTH STATUS Comment: - noted (4) Electrolyte and fluid disorder Current Visit: Yes Status: Acute Priority: High Code(s): E87.8 - OTH DISORDERS OF ELECTROLYTE AND FLUID BALANCE, NEC SNOMED Code(s): 91421077 Comment: - hyponatremia; secondary to hctz and hypovolemia - hold HCTZ - hypokalemia; secondatry to HCTZ - Additional 40 mEq potassium 05/03 and 05/04 - recheck Lytes 05/05 (5) DVT prophylaxis Current Visit: Yes Status: Acute Priority: High Code(s): QTE8338 - Comment: - SQH Status and Disposition: inpatient as per previous disposition
[2017-05-04] MEDS: Timolol 0.5% OPTH.SOL* BTL RIGHT EYE SCH (10:13)
[2017-05-04] MEDS: guaiFENesin ER TAB 600 MG PO SCH ×2 (10:13→20:10)
[2017-05-04] MEDS ORDERED: Potassium Chlor TAB* 20 MEQ TAB.ER PO ONE (17:57)
[2017-05-04] MEDS: cefTRIAXone(*) 1 GM in NS 0.9% 50 ML* 50 ML IVPB SCH (21:29)
[2017-05-04] MEDS: Azithromycin IV(*) 500 MG in NS 0.9% 250 ML* 250 ML IVPB SCH (22:02)
[2017-05-04] MEDS: Acetaminophen TAB* 325 MG PO PRN (22:59)
[2017-05-05] MEDS: Heparin VIAL(*) 5000 UNITS/ML VIAL (FIVE THOUSAND) SUBCUT SCH (05:06)
[2017-05-05 06:00] LABS: ABS Basophils 0 10^3/ul (0-0.2); ABS Eosinophils 0.2 10^3/ul (0-0.6); ABS Lymphocytes 1.5 10^3/ul (1.0-4.8); ABS Monocytes 0.9 10^3/ul (0-0.8); ABS Nucleated RBC 0 10^3/ul; Eosinophil % 3.1 % (0-6); Hematocrit 37 % (35-47); Hemoglobin 12.7 g/dl (12.0-16.0); Lymphocyte % 22.3 % (25-47); Mean Corpuscular HGB Conc 34 g/dl (31-36); Mean Corpuscular Hemoglobin 33 pg (27-31); Mean Corpuscular Volume 96 fL (80-97); Mean Platelet Volume 7 um3 (7.4-10.4); Nucleated Red Blood Cells % 0; Platelet Count 239 10^3/ul (150-450); Red Blood Count 3.86 10^6/ul (4.0-5.4); Red Cell Distribution Width 14 % (10.5-15); White Blood Count 6.6 10^3/ul (3.5-10.8)
[2017-05-05 06:12] LABS: EGFR Non-African American 65.2 (>60)
[2017-05-05] MEDS: Timolol 0.5% OPTH.SOL* BTL RIGHT EYE SCH (08:17)
[2017-05-05] MEDS: guaiFENesin ER TAB 600 MG PO SCH (08:17)
[2017-05-05 11:47] VITALS: BP 126/77
--- NOTE | 2017-05-05 11:55 | PN ---
Progress Note - Progress Note Date of Service: 05/05/17 Note: Time spent on discharge 45 minutes.
--- NOTE | 2017-05-06 06:35 | DS ---
CC: Dr. Clayton DISCHARGE SUMMARY: DATE OF ADMISSION: 05/02/17 DATE OF DISCHARGE: 05/05/17 HISTORY OF PRESENT ILLNESS: This 77-year-old woman presented with weakness, malaise and pleuritic midsternal chest pain. The history is detailed in admission note. Chest x-ray showed question of basilar atelectasis or pneumonia with possible left pleural effusion. On CT scan, there was no evidence of pulmonary embolism. The CT findings of the chest were bilateral bibasilar densities, atelectasis versus pneumonia, slightly worse on the left. The patient was treated with ceftriaxone and azithromycin. She did very well. She had a dry nonproductive cough. At the time of discharge, her chest pain went away. She felt much better. She never had chills or sweats at home. Twice she had a temperature of 100.0 in the hospital, but always under 100 other than those 2 times. She was on room air at the time of discharge with O2 sat of 93%. Her white blood cell count during the hospital stay fell from 12.9 to 6.3. The patient's blood pressure medicine was withheld during her entire hospital stay. On the day of discharge, her blood pressure is 133/71. I instructed her not to take her blood pressure medication but to follow up with her primary care provider to see what the prescription for blood pressure medication if any she should be on. FINAL DIAGNOSES: 1. Possible pneumonia versus pleurisy versus atelectasis. 2. History of hypertension. 3. Glaucoma. DISCHARGE MEDICATIONS: 1. Azithromycin 250 mg daily for 2 days. 2. Cefuroxime 500 mg b.i.d. for 4 days. 3. Vitamin D 2000 units daily. 4. Timolol 1 drop right eye daily. 5. Multivitamin with mineral daily. [id number]/[facility] #: [id number] [facility]
== END 2017-05-05 13:59 | disposition home or self-care (01) | DRG 194 ==
LOC: ED 19:41 → MEDTELE 22:25 → OBSVTOIN 05-02 09:30
PROVIDERS: ADMIT Hospitalist; ATTEND Internal Medicine
DX: J18.9 Pneumonia, unspecified organism (principal); J98.11 Atelectasis; E87.1 Hypo-osmolality and hyponatremia; I10 Essential (primary) hypertension; H40.9 Unspecified glaucoma; E78.5 Hyperlipidemia, unspecified; M19.90 Unspecified osteoarthritis, unspecified site; E87.6 Hypokalemia; Z79.899 Other long term (current) drug therapy; Z88.0 Allergy status to penicillin; Z88.2 Allergy status to sulfonamides; Z88.8 Allergy status to other drugs, medicaments and biological substances; Z91.048 Other nonmedicinal substance allergy status
CPT/HCPCS: 36415; 71045; 71275; 80048; 80053; 81003; 81015; 83605; 83690; 83880; 84484; 85025; 85610; 85730; 87040; 87502; 87899; 93005; 94760; 99284; A9270-GY; J0456; J0696; J1644; J1956; Q9967